=== PATIENT | female | born 1955 | race Asian ===

== ENCOUNTER 2017-06-07 19:12 | Inpatient (IN) | payer OTHER ==
[~2017-06-07] VITALS: Ht 162.6 cm; Wt 57.1 kg
[2017-06-07] MEDS ORDERED: INSLAN SQ (19:26)
[2017-06-07] MEDS ORDERED: DIABETES MEDICATION PO (19:26)
[2017-06-07] MEDS ORDERED: LISI-660 PO (19:26)
[2017-06-07 19:28] LABS: GLUCOSE,POINT OF CARE 296 MG/DL (70-110)
[2017-06-07] MEDS ORDERED: SODIUM CHLORIDE 0.9% 1,000 ML IV ONE (19:45)
[2017-06-07] MEDS ORDERED: ACETAMINOPHEN 325 MG TABLET PO ONE (19:45)
[2017-06-07] MEDS ORDERED: 0.9% SODIUM CHLORIDE 10 ML SYRINGE IVP PRN ×2 (19:45→21:00)
[2017-06-07 20:10] LABS: ABG A-A DIFF O2 41.1 mmHg (10-20.0); ABG BASE EXCESS -0.1 mmol/L (-2.0-3.0); ABG HCO3 24.6 mmol/L (22.0-26.0); ABG PCO2 39 mmHg (35-45); ABG PH 7.412 (7.35-7.450); ALLEN TEST, BLOOD GAS Positive
[2017-06-07 20:16] LABS: HEMATOCRIT 35.4 % (36-46); HEMOGLOBIN 12.1 g/dL (12.0-16.0); MEAN CORPUSCULAR HEMOGLOBIN 29.2 pg (26.0-34.0); MEAN CORPUSCULAR HGB CONC 34.1 G/dL (31.0-37.0); MEAN CORPUSCULAR VOLUME 86 fL (80-100); PLATELET COUNT (AUTO) 169 K/uL (150-450); RED BLOOD CELL COUNT(AUTO) 4.14 MIL/uL (4.00-5.20); RED CELL DISTRIBUTION WIDTH 12.4 % (11.5-14.5); WHITE BLOOD COUNT (AUTO) 13.3 K/uL (4.5-11.0)
[2017-06-07 20:19] LABS: ANION GAP 9 mmol/L (8-16); CALCIUM, TOTAL 8.9 mg/dL (8.8-10.5); CARBON DIOXIDE 27 mmol/L (22-29); CHLORIDE 100 mmol/L (98-107); CREATININE 1.19 mg/dL (0.60-1.30); GLOMERULAR FILTR. RATE CALC 46 mL/min (>60); POTASSIUM 3.6 mmol/L (3.5-5.1); SODIUM SERUM 136 mmol/L (136-145); UREA NITROGEN, BLOOD 33 mg/dL (7-18)
[2017-06-07 20:20] LABS: PROTHROMBIN TIME 10.4 SEC (9.4-11.6)
[2017-06-07 20:25] LABS: ALANINE AMINOTRANSFERASE 10 U/L (12-78); ALBUMIN 3.2 g/dL (3.4-5.0); ASPARTATE AMINOTRANSFERASE 18 U/L (15-37); BILIRUBIN,TOTAL 0.8 mg/dL (0.1-1.0); TOTAL PROTEIN, SERUM 7.5 g/dL (6.4-8.2)
[2017-06-07] MEDS ORDERED: LEVOFLOXACIN 750 MG/D5% WATER 150 ML IV ONE (20:30)
[2017-06-07] MEDS ORDERED: CefTRIAXone 1 GM/DEXTROSE 50 ML IV ONE (20:30)
[2017-06-07] MEDS ORDERED: OSELTAMIVIR PHOSPHATE 75 MG CAPSULE PO ONE (20:30)
[2017-06-07 20:36] LABS: LACTIC ACID 1.5 mmol/L (0.4-2.0)
[2017-06-07 20:49] LABS: B-TYPE NATRIURETIC PEPTIDE 39 pg/mL (0-100)
[2017-06-07] MEDS ORDERED: ONDANSETRON HCL 4 MG/2 ML VIAL IVP PRN ×2 (21:00→22:15)
[2017-06-07] MEDS ORDERED: ACETAMINOPHEN 325 MG TABLET PO PRN (21:00)
[2017-06-07 21:22] LABS: INFLUENZA TYPE B NEGATIVE FOR TYPE B (NEGATIVE)
[2017-06-07] MEDS ORDERED: IOVERSOL 320 MG/ML 100 ML VIAL ONE (21:24)
[2017-06-07 21:31] LABS: APPEARANCE,URINE CLOUDY (CLEAR); GLUCOSE, URINE (UA) >=1000 mg/dL (NEGATIVE); KETONES,URINE 15 mg/dL (NEGATIVE); OCCULT BLOOD,URINE MODERATE (NEGATIVE); PROTEIN,URINE SEE CONFIRM (NEGATIVE)
[2017-06-07 21:37] LABS: BAND NEUTROPHILS % (MANUAL) 15 % (1-5); LYMPHOCYTES % (MANUAL) 6 % (22-44); TOTAL CELLS COUNTED 100
[2017-06-07 21:41] LABS: LEUKOCYTE ESTERASE ,URINE SMALL (NEGATIVE)
[2017-06-07 21:42] LABS: ADD UA MICROSCOPIC YES; SULFOSALICYLIC ACID,URINE 1+ (Negative)
[2017-06-07 21:43] LABS: SQUAMOUS EPITHELIAL CELL,UR Moderate /LPF (None Seen)
[2017-06-07 22:14] VITALS: BP 137/78
[2017-06-07] MEDS ORDERED: DEXTROSE 50%-WATER 25 GM/50 ML SYRINGE IVP PRN (22:15)
[2017-06-07] MEDS ORDERED: MAGNESIUM HYDROXIDE SUSPENSION 30 ML UDCUP PO PRN (22:15)
[2017-06-07] MEDS: OxyCODONE HCL/ACETAMINOPHEN 5-325 MG TABLET PO PRN (22:27)
[2017-06-07] MEDS: PREGABALIN 75 MG CAPSULE PO SCH (23:07)
[2017-06-07] MEDS: INSULIN ASPART 100 UNITS/ML SQ PRN (23:08)
[2017-06-07] MEDS: INSULIN DETEMIR 100 UNITS/ML SQ SCH (23:09)
[2017-06-08 01:03] LABS: GLUCOSE,POINT OF CARE 301 MG/DL (70-110)
[2017-06-08] MEDS ORDERED: CANA1TAB PO (01:55)
[2017-06-08] MEDS ORDERED: ACET1TAB12 PO (01:55)
[2017-06-08] MEDS ORDERED: CAPS42.55 TP (01:55)
[2017-06-08] MEDS ORDERED: VIT1TABL69 PO (01:55)
[2017-06-08] MEDS ORDERED: PREG50 PO ×2 (01:55)
[2017-06-08] MEDS ORDERED: METO-391 PO (01:55)
[2017-06-08] MEDS ORDERED: LIDO35.44 TP (01:55)
[2017-06-08] MEDS ORDERED: TIMO10DR28 OU (01:55)
[2017-06-08] MEDS ORDERED: ALEN70TA2 PO (01:55)
[2017-06-08] MEDS ORDERED: DULO60CA44 PO (01:55)
[2017-06-08] MEDS ORDERED: NAPR500T4 PO (01:55)
[2017-06-08] MEDS ORDERED: CARB15DR94 OU (01:55)
[2017-06-08] MEDS ORDERED: AMLO-511 PO (01:55)
[2017-06-08] MEDS ORDERED: LEVO1CAP3 PO (01:55)
[2017-06-08] MEDS: ACETAMINOPHEN 325 MG TABLET PO PRN ×5 (02:25→21:11)
[2017-06-08] MEDS: SODIUM CHLORIDE 0.9% 1,000 ML IV SCH ×3 (02:29→21:22)
[2017-06-08] MEDS ORDERED: PNEUMOCOCCAL VACCINE POLYVALENT 0.5 ML VIAL [PPSV23] IM ONE (04:45)
[2017-06-08] MEDS ORDERED: INFLUENZA VIRUS VACCINE QVS 2017-18 (3YR+)/PF 60 MCG/0.5 ML SYRINGE IM ONE (04:45)
[2017-06-08 04:59] VITALS: BP 111/64
[2017-06-08] MEDS: INSULIN ASPART 100 UNITS/ML SQ PRN ×3 (05:52→17:37)
[2017-06-08 07:13] LABS: BASOPHILS % (AUTO) 0.1 % (0.0-2.0); EOSINOPHILS % (AUTO) 0 % (1.0-6.0); HEMATOCRIT 33.6 % (36-46); HEMOGLOBIN 11.6 g/dL (12.0-16.0); LYMPHOCYTES # (AUTO) 0.6 K/uL (1.0-4.8); LYMPHOCYTES % (AUTO) 3.7 % (22.0-44.0); MEAN CORPUSCULAR HEMOGLOBIN 29.7 pg (26.0-34.0); MEAN CORPUSCULAR HGB CONC 34.5 G/dL (31.0-37.0); MEAN CORPUSCULAR VOLUME 86 fL (80-100); MONOCYTES # (AUTO) 1.6 K/uL (0.1-1.0); MONOCYTES % (AUTO) 9.8 % (2.0-9.0); NEUTROPHILS # (AUTO) 13.9 K/uL (1.8-7.7); PLATELET COUNT (AUTO) 168 K/uL (150-450); RED BLOOD CELL COUNT(AUTO) 3.91 MIL/uL (4.00-5.20); RED CELL DISTRIBUTION WIDTH 12.7 % (11.5-14.5); WHITE BLOOD COUNT (AUTO) 16.1 K/uL (4.5-11.0)
[2017-06-08 07:18] LABS: GLUCOSE,POINT OF CARE 190 MG/DL (70-110)
[2017-06-08 07:23] LABS: NEUTROPHILS % (AUTO) 86.4 % (40.0-70.0)
[2017-06-08 07:42] LABS: ALBUMIN 2.6 g/dL (3.4-5.0); BILIRUBIN,TOTAL 0.5 mg/dL (0.1-1.0); CALCIUM, TOTAL 8.2 mg/dL (8.8-10.5); CREATININE 1.07 mg/dL (0.60-1.30); POTASSIUM 3.4 mmol/L (3.5-5.1); TOTAL PROTEIN, SERUM 6.6 g/dL (6.4-8.2)
[2017-06-08 07:45] VITALS: BP 98/59
[2017-06-08] MEDS: DOCUSATE SODIUM 100 MG CAPSULE PO SCH ×2 (08:59→21:10)
[2017-06-08] MEDS: PREGABALIN 75 MG CAPSULE PO SCH ×2 (09:00→21:10)
[2017-06-08] MEDS: PANTOPRAZOLE SODIUM 40 MG DR TABLET PO SCH (09:01)
[2017-06-08] MEDS: HEPARIN SODIUM,PORCINE 5,000 UNITS/ML VIAL SQ SCH ×2 (09:01→21:10)
[2017-06-08 11:38] VITALS: BP 131/86
[2017-06-08] MEDS ORDERED: LISI-662 PO (11:52)
[2017-06-08] MEDS ORDERED: POTASSIUM CHLORIDE 20 MEQ ER TABLET PO PRN (12:00)
[2017-06-08 13:28] LABS: GLUCOSE COMMENT 1 Received Meds; GLUCOSE,POINT OF CARE 167 MG/DL (70-110)
[2017-06-08 15:02] VITALS: BP 124/80
[2017-06-08] MEDS: OxyCODONE HCL/ACETAMINOPHEN 5-325 MG TABLET PO PRN (19:21)
[2017-06-08 19:56] VITALS: BP 142/76
[2017-06-08] MEDS: CefTRIAXone 1 GM/DEXTROSE 50 ML IV SCH (21:11)
[2017-06-08] MEDS: INSULIN DETEMIR 100 UNITS/ML SQ SCH (21:12)
[2017-06-08 21:55] LABS: GLUCOSE,POINT OF CARE 126 MG/DL (70-110)
[2017-06-08 21:55] LABS: GLUCOSE,POINT OF CARE 137 MG/DL (70-110)
[2017-06-08] MEDS ORDERED: LEVOFLOXACIN 500 MG TABLET PO ONE (23:30)
[2017-06-09] VITALS (7 sets, daily range): BP systolic 116–144; BP diastolic 70–78
[2017-06-09] MEDS: OxyCODONE HCL/ACETAMINOPHEN 5-325 MG TABLET PO PRN ×4 (00:38→21:54)
[2017-06-09] MEDS: ACETAMINOPHEN 325 MG TABLET PO PRN ×2 (05:29→09:02)
[2017-06-09 06:48] LABS: GLUCOSE,POINT OF CARE 96 MG/DL (70-110)
[2017-06-09 07:08] LABS: EOSINOPHILS % (AUTO) 0.1 % (1.0-6.0); HEMATOCRIT 33.8 % (36-46); HEMOGLOBIN 11.5 g/dL (12.0-16.0); LYMPHOCYTES # (AUTO) 0.6 K/uL (1.0-4.8); LYMPHOCYTES % (AUTO) 4.6 % (22.0-44.0); MEAN CORPUSCULAR HEMOGLOBIN 29.4 pg (26.0-34.0); MEAN CORPUSCULAR HGB CONC 33.9 G/dL (31.0-37.0); MEAN CORPUSCULAR VOLUME 87 fL (80-100); MONOCYTES % (AUTO) 7.7 % (2.0-9.0); PLATELET COUNT (AUTO) 162 K/uL (150-450); RED CELL DISTRIBUTION WIDTH 12.7 % (11.5-14.5); WHITE BLOOD COUNT (AUTO) 13.7 K/uL (4.5-11.0)
[2017-06-09 07:09] LABS: NEUTROPHILS % (AUTO) 87.6 % (40.0-70.0); RBC MORPHOLOGY COMMENT NORMAL RBC MORPH
[2017-06-09] MEDS: LEVOFLOXACIN 500 MG TABLET PO SCH (08:44)
[2017-06-09] MEDS: HEPARIN SODIUM,PORCINE 5,000 UNITS/ML VIAL SQ SCH ×2 (08:44→19:59)
[2017-06-09] MEDS: PREGABALIN 75 MG CAPSULE PO SCH (08:44)
[2017-06-09] MEDS: DOCUSATE SODIUM 100 MG CAPSULE PO SCH ×2 (08:44→20:10)
[2017-06-09] MEDS: PANTOPRAZOLE SODIUM 40 MG DR TABLET PO SCH (08:45)
[2017-06-09] MEDS: SODIUM CHLORIDE 0.9% 1,000 ML IV SCH (12:54)
[2017-06-09 14:57] LABS: GLUCOSE,POINT OF CARE 110 MG/DL (70-110)
[2017-06-09] MEDS: CefTRIAXone 1 GM/DEXTROSE 50 ML IV SCH (19:59)
[2017-06-09] MEDS: INSULIN DETEMIR 100 UNITS/ML SQ SCH (20:52)
[2017-06-09 20:57] LABS: GLUCOSE,POINT OF CARE 115 MG/DL (70-110)
[2017-06-09 20:57] LABS: GLUCOSE,POINT OF CARE 104 MG/DL (70-110)
[2017-06-09] MEDS: PREGABALIN 50 MG CAPSULE PO SCH (22:02)
[2017-06-10] MEDS: OxyCODONE HCL/ACETAMINOPHEN 5-325 MG TABLET PO PRN ×6 (01:42→23:57)
[2017-06-10 04:52] VITALS: BP 139/60
[2017-06-10 07:34] VITALS: BP 125/70
[2017-06-10] MEDS: PANTOPRAZOLE SODIUM 40 MG DR TABLET PO SCH (08:21)
[2017-06-10] MEDS: PREGABALIN 50 MG CAPSULE PO SCH ×2 (08:21→20:35)
[2017-06-10] MEDS: DOCUSATE SODIUM 100 MG CAPSULE PO SCH ×2 (08:21→20:35)
[2017-06-10] MEDS: HEPARIN SODIUM,PORCINE 5,000 UNITS/ML VIAL SQ SCH ×3 (08:21→21:00)
[2017-06-10] MEDS: LEVOFLOXACIN 500 MG TABLET PO SCH (08:21)
[2017-06-10 08:44] LABS: GLUCOSE,POINT OF CARE 106 MG/DL (70-110)
[2017-06-10] MEDS: ASPIRIN 325 MG TABLET PO SCH ×2 (11:50→14:29)
[2017-06-10] MEDS: ATORVASTATIN CALCIUM 20 MG TABLET PO SCH (11:50)
[2017-06-10 12:15] VITALS: BP 135/75
[2017-06-10] MEDS ORDERED: IOVERSOL 350 MG/ML 100 ML VIAL ONE (15:36)
[2017-06-10 15:43] VITALS: BP 108/62
[2017-06-10 15:47] LABS: BASOPHILS % (AUTO) 0.5 % (0.0-2.0); HEMATOCRIT 31.1 % (36-46); HEMOGLOBIN 10.6 g/dL (12.0-16.0); LYMPHOCYTES # (AUTO) 0.9 K/uL (1.0-4.8); LYMPHOCYTES % (AUTO) 7.7 % (22.0-44.0); MEAN CORPUSCULAR VOLUME 85 fL (80-100); MONOCYTES # (AUTO) 1.3 K/uL (0.1-1.0); MONOCYTES % (AUTO) 11.4 % (2.0-9.0); NEUTROPHILS # (AUTO) 9.3 K/uL (1.8-7.7); NEUTROPHILS % (AUTO) 79.4 % (40.0-70.0); PLATELET COUNT (AUTO) 196 K/uL (150-450); RED BLOOD CELL COUNT(AUTO) 3.64 MIL/uL (4.00-5.20); RED CELL DISTRIBUTION WIDTH 13.1 % (11.5-14.5); WHITE BLOOD COUNT (AUTO) 11.7 K/uL (4.5-11.0)
[2017-06-10 15:59] LABS: ANION GAP 11 mmol/L (8-16); CALCIUM, TOTAL 7.6 mg/dL (8.8-10.5); CARBON DIOXIDE 23 mmol/L (22-29); CHLORIDE 105 mmol/L (98-107); CREATININE 0.89 mg/dL (0.60-1.30); GLOMERULAR FILTR. RATE CALC > 60 mL/min (>60); POTASSIUM 3.1 mmol/L (3.5-5.1); SODIUM SERUM 139 mmol/L (136-145); UREA NITROGEN, BLOOD 13 mg/dL (7-18)
[2017-06-10 16:00] LABS: PROTHROMBIN TIME 10.4 SEC (9.4-11.6)
[2017-06-10 16:04] LABS: ALANINE AMINOTRANSFERASE 17 U/L (12-78); ALBUMIN 2.1 g/dL (3.4-5.0); ASPARTATE AMINOTRANSFERASE 21 U/L (15-37); BILIRUBIN,TOTAL 0.2 mg/dL (0.1-1.0); TOTAL PROTEIN, SERUM 6.1 g/dL (6.4-8.2)
[2017-06-10 16:55] LABS: GLUCOSE,POINT OF CARE 135 MG/DL (70-110)
[2017-06-10] MEDS: SODIUM CHLORIDE 0.9% 1,000 ML IV SCH (17:08)
[2017-06-10 17:49] VITALS: BP 149/91
[2017-06-10 19:53] VITALS: BP 161/87
[2017-06-10] MEDS: CefTRIAXone 1 GM/DEXTROSE 50 ML IV SCH (20:35)
[2017-06-10] MEDS: INSULIN ASPART 100 UNITS/ML SQ PRN (20:52)
[2017-06-10] MEDS: INSULIN DETEMIR 100 UNITS/ML SQ SCH (20:52)
[2017-06-11] VITALS (7 sets, daily range): BP systolic 125–148; BP diastolic 64–80
[2017-06-11] MEDS: OxyCODONE HCL/ACETAMINOPHEN 5-325 MG TABLET PO PRN ×5 (03:53→21:22)
[2017-06-11] MEDS: SODIUM CHLORIDE 0.9% 1,000 ML IV SCH (05:16)
[2017-06-11 05:50] LABS: BASOPHILS % (AUTO) 0.1 % (0.0-2.0); EOSINOPHILS % (AUTO) 0.9 % (1.0-6.0); HEMATOCRIT 30.8 % (36-46); HEMOGLOBIN 10.5 g/dL (12.0-16.0); LYMPHOCYTES # (AUTO) 0.7 K/uL (1.0-4.8); LYMPHOCYTES % (AUTO) 5.6 % (22.0-44.0); MEAN CORPUSCULAR HGB CONC 34.2 G/dL (31.0-37.0); MEAN CORPUSCULAR VOLUME 85 fL (80-100); MONOCYTES # (AUTO) 1.7 K/uL (0.1-1.0); NEUTROPHILS # (AUTO) 10.8 K/uL (1.8-7.7); NEUTROPHILS % (AUTO) 80.4 % (40.0-70.0); PLATELET COUNT (AUTO) 219 K/uL (150-450); RED BLOOD CELL COUNT(AUTO) 3.63 MIL/uL (4.00-5.20); RED CELL DISTRIBUTION WIDTH 13.1 % (11.5-14.5); WHITE BLOOD COUNT (AUTO) 13.4 K/uL (4.5-11.0)
[2017-06-11] MEDS: INSULIN ASPART 100 UNITS/ML SQ PRN ×4 (05:57→20:43)
[2017-06-11 06:01] LABS: ANION GAP 10 mmol/L (8-16); CALCIUM, TOTAL 7.4 mg/dL (8.8-10.5); CARBON DIOXIDE 23 mmol/L (22-29); CHLORIDE 105 mmol/L (98-107); CREATININE 0.76 mg/dL (0.60-1.30); GLOMERULAR FILTR. RATE CALC > 60 mL/min (>60); SODIUM SERUM 138 mmol/L (136-145); UREA NITROGEN, BLOOD 8 mg/dL (7-18)
[2017-06-11 06:05] LABS: POTASSIUM 2.8 mmol/L (3.5-5.1)
[2017-06-11] MEDS ORDERED: SODIUM CHLORIDE 0.9% 250 ML IV ONE ×3 (06:07→22:18)
[2017-06-11] MEDS: POTASSIUM CHL 10 MEQ/WATER 50 ML IV PRN ×6 (06:13→23:46)
[2017-06-11] MEDS: PREGABALIN 50 MG CAPSULE PO SCH ×2 (08:43→20:32)
[2017-06-11] MEDS: HEPARIN SODIUM,PORCINE 5,000 UNITS/ML VIAL SQ SCH ×2 (08:43→20:32)
[2017-06-11] MEDS: ASPIRIN 325 MG TABLET PO SCH (08:43)
[2017-06-11] MEDS: PANTOPRAZOLE SODIUM 40 MG DR TABLET PO SCH (08:43)
[2017-06-11] MEDS: LEVOFLOXACIN 500 MG TABLET PO SCH (08:43)
[2017-06-11] MEDS: ATORVASTATIN CALCIUM 20 MG TABLET PO SCH (08:43)
[2017-06-11] MEDS: DOCUSATE SODIUM 100 MG CAPSULE PO SCH ×2 (08:43→20:32)
[2017-06-11] MEDS ORDERED: POTASSIUM CHLORIDE 20 MEQ ER TABLET PO PRN (09:45)
[2017-06-11] MEDS ORDERED: POTASSIUM CHL 10 MEQ/WATER 50 ML IV PRN (09:45)
[2017-06-11] MEDS: CHOLECALCIFEROL (VIT D3) 1,000 UNITS TABLET PO SCH (11:55)
[2017-06-11 16:07] LABS: GLUCOSE,POINT OF CARE 193 MG/DL (70-110)
[2017-06-11 16:07] LABS: GLUCOSE,POINT OF CARE 160 MG/DL (70-110)
[2017-06-11 16:07] LABS: GLUCOSE COMMENT 1 Received Meds; GLUCOSE,POINT OF CARE 157 MG/DL (70-110)
[2017-06-11 16:07] LABS: GLUCOSE,POINT OF CARE 228 MG/DL (70-110)
[2017-06-11 19:53] LABS: GLUCOSE,POINT OF CARE 161 MG/DL (70-110)
[2017-06-11] MEDS: INSULIN DETEMIR 100 UNITS/ML SQ SCH (20:56)
[2017-06-12] MEDS: OxyCODONE HCL/ACETAMINOPHEN 5-325 MG TABLET PO PRN ×5 (01:06→20:49)
[2017-06-12 01:23] LABS: GLUCOSE,POINT OF CARE 129 MG/DL (70-110)
[2017-06-12] MEDS: POTASSIUM CHL 10 MEQ/WATER 50 ML IV PRN ×2 (01:30→02:54)
[2017-06-12] MEDS: SODIUM CHLORIDE 0.9% 1,000 ML IV SCH ×2 (02:53→16:55)
[2017-06-12 05:37] VITALS: BP 149/80
[2017-06-12] MEDS: INSULIN ASPART 100 UNITS/ML SQ PRN ×3 (05:41→17:52)
[2017-06-12 07:28] VITALS: BP 140/76
[2017-06-12] MEDS: ASPIRIN 325 MG TABLET PO SCH (09:00)
[2017-06-12] MEDS: PREGABALIN 50 MG CAPSULE PO SCH ×2 (09:45→20:31)
[2017-06-12] MEDS: LEVOFLOXACIN 500 MG TABLET PO SCH (09:46)
[2017-06-12] MEDS: PANTOPRAZOLE SODIUM 40 MG DR TABLET PO SCH (09:46)
[2017-06-12] MEDS: CHOLECALCIFEROL (VIT D3) 1,000 UNITS TABLET PO SCH (09:46)
[2017-06-12] MEDS: HEPARIN SODIUM,PORCINE 5,000 UNITS/ML VIAL SQ SCH ×2 (09:46→20:31)
[2017-06-12] MEDS: DOCUSATE SODIUM 100 MG CAPSULE PO SCH ×2 (09:46→20:31)
[2017-06-12] MEDS: MULTIVITAMINS WITH MINERALS, THERAPEUTIC TABLET PO SCH (09:46)
[2017-06-12] MEDS: ATORVASTATIN CALCIUM 20 MG TABLET PO SCH (09:46)
[2017-06-12 11:18] VITALS: BP 159/83
[2017-06-12 15:33] VITALS: BP 150/84
[2017-06-12] MEDS: CLOPIDOGREL BISULFATE 75 MG TABLET PO SCH (16:50)
[2017-06-12 20:23] LABS: GLUCOSE,POINT OF CARE 131 MG/DL (70-110)
[2017-06-12 20:44] VITALS: BP 145/75
[2017-06-12] MEDS: INSULIN DETEMIR 100 UNITS/ML SQ SCH (21:00)
[2017-06-13 00:08] LABS: GLUCOSE COMMENT 1 Received Meds; GLUCOSE,POINT OF CARE 195 MG/DL (70-110)
[2017-06-13 00:08] LABS: GLUCOSE COMMENT 1 Received Meds; GLUCOSE,POINT OF CARE 187 MG/DL (70-110)
[2017-06-13 00:08] LABS: GLUCOSE COMMENT 1 Received Meds; GLUCOSE,POINT OF CARE 198 MG/DL (70-110)
[2017-06-13 00:29] VITALS: BP 150/74
[2017-06-13] MEDS: HYDROmorphone 2 MG/ML SYRINGE IVP PRN ×2 (00:40→05:19)
[2017-06-13 02:20] VITALS: BP 160/80
[2017-06-13] MEDS: OxyCODONE HCL/ACETAMINOPHEN 5-325 MG TABLET PO PRN ×4 (02:22→17:57)
[2017-06-13 05:15] VITALS: BP 151/86
[2017-06-13 07:29] LABS: HEMOGLOBIN A1C 7.5 % (4.5-6.2)
[2017-06-13 07:45] VITALS: BP 141/84
[2017-06-13 08:05] LABS: CHOL/HDL RATIO 6.4 (3.9-5.7); THYROID STIMULATING HORMONE 4.08 uIU/mL (0.36-3.74)
[2017-06-13] MEDS: MULTIVITAMINS WITH MINERALS, THERAPEUTIC TABLET PO SCH (08:49)
[2017-06-13] MEDS: CLOPIDOGREL BISULFATE 75 MG TABLET PO SCH (08:49)
[2017-06-13] MEDS: CHOLECALCIFEROL (VIT D3) 1,000 UNITS TABLET PO SCH (08:49)
[2017-06-13] MEDS: DOCUSATE SODIUM 100 MG CAPSULE PO SCH (08:49)
[2017-06-13] MEDS: PREGABALIN 50 MG CAPSULE PO SCH (08:49)
[2017-06-13] MEDS: PANTOPRAZOLE SODIUM 40 MG DR TABLET PO SCH (08:49)
[2017-06-13] MEDS: LEVOFLOXACIN 500 MG TABLET PO SCH (08:49)
[2017-06-13] MEDS: ATORVASTATIN CALCIUM 20 MG TABLET PO SCH (08:49)
[2017-06-13] MEDS: HEPARIN SODIUM,PORCINE 5,000 UNITS/ML VIAL SQ SCH (08:50)
[2017-06-13] MEDS: SODIUM CHLORIDE 0.9% 1,000 ML IV SCH (09:00)
[2017-06-13 09:59] LABS: VITAMIN B12 LEVEL > 2000 pg/mL (211-911)
[2017-06-13 10:21] LABS: BASOPHILS % (AUTO) 0.7 % (0.0-2.0); EOSINOPHILS % (AUTO) 1.5 % (1.0-6.0); HEMATOCRIT 32.7 % (36-46); LYMPHOCYTES # (AUTO) 1.3 K/uL (1.0-4.8); LYMPHOCYTES % (AUTO) 8.7 % (22.0-44.0); MEAN CORPUSCULAR HEMOGLOBIN 28.8 pg (26.0-34.0); MEAN CORPUSCULAR HGB CONC 33.5 G/dL (31.0-37.0); MEAN CORPUSCULAR VOLUME 86 fL (80-100); MONOCYTES % (AUTO) 6.8 % (2.0-9.0); NEUTROPHILS # (AUTO) 12.6 K/uL (1.8-7.7); NEUTROPHILS % (AUTO) 82.3 % (40.0-70.0); PLATELET COUNT (AUTO) 365 K/uL (150-450); WHITE BLOOD COUNT (AUTO) 15.3 K/uL (4.5-11.0)
[2017-06-13 10:43] LABS: ANION GAP 11 mmol/L (8-16); CALCIUM, TOTAL 7.6 mg/dL (8.8-10.5); CARBON DIOXIDE 24 mmol/L (22-29); CHLORIDE 107 mmol/L (98-107); CREATININE 0.65 mg/dL (0.60-1.30); GLOMERULAR FILTR. RATE CALC > 60 mL/min (>60); PHOSPHORUS 1.8 mg/dL (2.5-4.9); POTASSIUM 3.1 mmol/L (3.5-5.1); SODIUM SERUM 142 mmol/L (136-145); UREA NITROGEN, BLOOD 6 mg/dL (7-18)
[2017-06-13 11:22] LABS: GLUCOSE,POINT OF CARE 105 MG/DL (70-110)
[2017-06-13 11:38] VITALS: BP 125/62
[2017-06-13 15:43] LABS: GLUCOSE,POINT OF CARE 89 MG/DL (70-110)
[2017-06-13] MEDS ORDERED: GADOBUTROL 1 MMOL/ML 10 ML VIAL IVP ONE (16:24)
[2017-06-13 20:12] LABS: GLUCOSE COMMENT 1 Received Meds; GLUCOSE,POINT OF CARE 176 MG/DL (70-110)
== END 2017-06-13 18:35 | DRG 720 ==
LOC: EMS 19:12 → 6N 20:49 → 5N 06-10 17:15
PROVIDERS: ADMIT Internal Medicine; ATTEND Internal Medicine
DX: A41.9 Sepsis, unspecified organism (principal); I63.9 Cerebral infarction, unspecified; E43 Unspecified severe protein-calorie malnutrition; E11.65 Type 2 diabetes mellitus with hyperglycemia; G81.94 Hemiplegia, unspecified affecting left nondominant side; G62.9 Polyneuropathy, unspecified; N13.30 Unspecified hydronephrosis; B96.89 Other specified bacterial agents as the cause of diseases classified elsewhere; E87.6 Hypokalemia; E55.9 Vitamin D deficiency, unspecified; N39.0 Urinary tract infection, site not specified; I10 Essential (primary) hypertension; B96.20 Unspecified Escherichia coli [E. coli] as the cause of diseases classified elsewhere; Z91.19 Patient's noncompliance with other medical treatment and regimen; Z88.1 Allergy status to other antibiotic agents; Z88.8 Allergy status to other drugs, medicaments and biological substances; Z68.21 Body mass index [BMI] 21.0-21.9, adult
CPT/HCPCS: 70450; 70496; 70549; 70551; 74177; 76770; 76856; 82010; 82306; 82607; 82746; 82805; 82962; 83036; 83605; 83735; 84100; 84132; 84439; 84443; 84481; 87040; 87086; 87804; 90471; 92523; 93005; 93306; 93880; 96361; 96365; 96368; 97112; 97162; 99285; A9585; J0696; J1170; J1644; J1956; J2405; J3480; J7030; J7050

== ENCOUNTER → 2018-05-24 | Outpatient (CLI) | payer OTHER ==
[~2018-05-24] MED LIST: ACET1TAB12 PO; ALEN70TA2 PO; AMLO-511 PO; CANA1TAB PO; CAPS42.55 TP; CARB15DR94 OU; DULO60CA44 PO; INSLAN SQ; LEVO1CAP3 PO; LIDO35.44 TP; LISI-662 PO; METO-391 PO; NAPR-1024 PO; PREG50 PO; TIMO10DR28 OU; VIT1TABL69 PO
== END | disposition home or self-care (01) ==
LOC: RADMN 07:43
PROVIDERS: ATTEND Internal Medicine
DX: M25.412 Effusion, left shoulder (principal); M25.411 Effusion, right shoulder
CPT/HCPCS: 70491

== ENCOUNTER → 2019-01-27 | Outpatient (CLI) | payer MEDICARE, OTHER ==
[~2019-01-27] MED LIST changes: -AMLO-511 PO; +AMLO5TAB9 PO; +CAPS42.513 TP; -CAPS42.55 TP
== END | disposition home or self-care (01) ==
LOC: RADPV 12:52
PROVIDERS: ATTEND Hospitalist
DX: E11.29 Type 2 diabetes mellitus with other diabetic kidney complication (principal); N28.89 Other specified disorders of kidney and ureter
CPT/HCPCS: 76770